=== PATIENT | male | born 2005 | race Caucasian/White ===

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

== ENCOUNTER → 2024-10-18 | Outpatient (CLI) | payer OTHER ==
[2024-10-18 15:20] LABS: ALT 42 U/L (10-49); AST 27 U/L (14-35); Albumin 4.4 g/dL (3.8-4.9); Albumin/Globulin Ratio 1.91 Ratio (1.60-3.17); Alkaline Phosphatase 77 U/L (41-126); BUN/Creat Ratio 19.43 Ratio (12.00-20.00); Blood Urea Nitrogen 13.6 mg/dL (9.0-27.0); Calcium 9.9 mg/dL (8.7-10.3); Carbon Dioxide 26.5 mmol/L (21.6-31.8); Chloride 103 mmol/L (96-109); Chol/HDL Ratio 6.13 Ratio; Globulin 2.3 g/dL (1.6-3.3); Glucose 90 mg/dL (70-110); LDL Cholesterol,Calculated 104.9 mg/dL (0.0-131.0); Sodium 141 mmol/L (135-145); Total Bilirubin 0.3 mg/dL (0.3-1.2); Total Protein 6.7 g/dL (6.2-8.2); VLDL Calculation 19.78 mg/dL (5.00-40.00)
[2024-10-18 21:10] LABS: Microalbumin Creatinine Ratio <29 mg/g Cr (0-30); Urine Creatinine 40.7 mg/dL (39.0-259.0)
== END | disposition home or self-care (01) ==
LOC: LABWHC1 11:24
PROVIDERS: ATTEND Internal Medicine Endocrinology, Diabetes & Metabolism
DX: E10.65 Type 1 diabetes mellitus with hyperglycemia (principal)
CPT/HCPCS: 36415; 80053; 80061; 82043; 82570; 83036; 84443

== ENCOUNTER → 2025-02-23 | Outpatient (CLI) | payer OTHER ==
[2025-02-23 19:58] LABS: ALT 63 U/L (10-49); AST 38 U/L (14-35); Albumin 4.2 g/dL (3.8-4.9); Albumin/Globulin Ratio 2.00 Ratio (1.60-3.17); Alkaline Phosphatase 69 U/L (41-126); Anion Gap 10.10 mmol/L (4.00-12.00); BUN/Creat Ratio 18.12 Ratio (12.00-20.00); Blood Urea Nitrogen 14.5 mg/dL (9.0-27.0); Calcium 9.1 mg/dL (8.7-10.3); Carbon Dioxide 24.9 mmol/L (21.6-31.8); Chloride 101 mmol/L (96-109); Cholesterol 159.00 mg/dL (0.00-200.00); Globulin 2.1 g/dL (1.6-3.3); Glucose 286 mg/dL (70-110); HDL Cholesterol 29.80 mg/dL (40.00-60.00); LDL Cholesterol,Calculated 94.4 mg/dL (0.0-131.0); Potassium 4.5 mmol/L (3.5-5.5); Sodium 136 mmol/L (135-145); Total Protein 6.3 g/dL (6.2-8.2); Triglycerides 174.00 mg/dL (0.00-149.00); VLDL Calculation 34.80 mg/dL (5.00-40.00)
== END | disposition home or self-care (01) ==
LOC: LABWHC1 13:22
PROVIDERS: ATTEND Internal Medicine Endocrinology, Diabetes & Metabolism
DX: E10.65 Type 1 diabetes mellitus with hyperglycemia (principal)
CPT/HCPCS: 36415; 80053; 80061; 82043; 82570; 83036; 84443